=== PATIENT | female | born 1960 | race Caucasian/White ===

== ENCOUNTER 2016-08-27 11:16 | Emergency (ER) | payer OTHER ==
[~2016-08-27] VITALS: Ht 165.1 cm; Wt 99.8 kg
--- NOTE | ~2016-08-27 | EKG ---
[place] [address] [address] [facility] [place] [address] ELECTROCARDIOGRAM REPORT Name: DARRICK PATTON Room #: DEP ASIM Núñez#: [id number] Admission: 08/27/16 Attend Phys: Discharge: 08/27/16 Date of : 58 Report #: [id number] THIS REPORT FOR: //name// [facility] ED Test Date: 2016-08-27 Test Time: 11:20:14 Pat Name: DARRICK PATTON Department: Room: Gender: F Aerial Erector: [facility] : 1960 Requested By: Julio Rios Order Number: [id number] MD: Titi Valverde Measurements Intervals [place] Rate: 72 P: 43 FL: 132 QRS: 47 QRSD: 91 T: 14 QT: 428 QTc: 469 Interpretive Statements Sinus rhythm No significant abnormality No previous ECG available for comparison Electronically Signed On 08-28-2016 15:55:54 CDT by Titi Valverde [email or web address] <ELECTRONICALLY SIGNED> By: Titi Valverde MD, [facility] 08/28/16 1555 1120 1120 Titi Valverde MD, FAC /EPI
[2016-08-27 12:46] LABS: ABSOLUTE NEUTROPHILS 4.6 thou/uL (1.4-8.2); BASOPHILS 0.8 % (0.0-2.0); EOSINOPHILS 0.6 % (0.0-3.0); HEMATOCRIT 37.3 % (37.0-47.0); HEMOGLOBIN 12.9 gm/dL (12.0-15.0); LYMPHOCYTES 35.8 % (24.0-44.0); MCH 27.6 pg (26.0-34.0); MCHC 34.6 g/dL (28.0-37.0); MCV 79.9 fL (80.0-100.0); MONOCYTES 5.7 % (1.0-8.0); PLATELET COUNT 231 thou/uL (150-400); POLYS 57.1 % (36.0-66.0); RBC 4.67 mil/uL (4.20-5.00); WBC 8.1 thou/uL (4.0-11.0)
[2016-08-27 12:48] LABS: MANUAL DIFF NO
[2016-08-27 12:52] LABS: ANION GAP 9 mmol/L (7-16); BUN 17 mg/dL (7-18); CALCIUM 8.3 mg/dL (8.5-10.1); CHLORIDE 104 mmol/L (98-107); CO2 27 mmol/L (21-32); CREATININE 0.7 mg/dL (0.6-1.0); GLUCOSE 101 mg/dL (74-106); POTASSIUM 3.5 mmol/L (3.5-5.1); SODIUM 140 mmol/L (136-145)
[2016-08-27 13:03] LABS: ALBUMIN 2.9 g/dL (3.4-5.0); ALKALINE PHOSPHATASE 146 U/L (46-116); DIRECT BILIRUBIN < 0.1 mg/dL (<0.1-0.3); NT-PRO BRAIN NAT PEPTIDE 426 pg/mL (<300); SGOT 20 U/L (15-37); SGPT 13 U/L (30-65); TOTAL BILIRUBIN 0.4 mg/dL (<0.1-1.0); TOTAL PROTEIN 6.7 g/dL (6.4-8.2); TROPONIN-I < 0.04 ng/mL (<0.04-0.07)
[2016-08-27 14:42] VITALS: BP 111/50
[2016-08-27] MEDS ORDERED: DOXYCYCLINE 10100 MG PO (15:03)
== END 2016-08-27 15:40 | disposition home or self-care (01) ==
LOC: ER 11:16
PROVIDERS: Physician Assistant
DX: J18.9 Pneumonia, unspecified organism (principal); F41.9 Anxiety disorder, unspecified; F32.9 Major depressive disorder, single episode, unspecified; M19.90 Unspecified osteoarthritis, unspecified site; Z90.49 Acquired absence of other specified parts of digestive tract; Z90.710 Acquired absence of both cervix and uterus; Z88.2 Allergy status to sulfonamides; Z88.6 Allergy status to analgesic agent; Z88.8 Allergy status to other drugs, medicaments and biological substances

== ENCOUNTER 2017-01-29 10:40 | Emergency (ER) | payer OTHER ==
[~2017-01-29] VITALS: Ht 165.1 cm; Wt 104.3 kg
[~2017-01-29 10:40] MED LIST: ATORVASTATIN CA40 MG PO; BENTYL 10 MG CA10 M1 PO; BUSPIRONE HCL5 MG PO; CLONAZEPAM 1 MG1 M1 PO; DOXYCYCLINE 10100 MG PO; FENTANYL PATCH75 MCG TRANSDERM; LEXAPRO20 MG PO; NEURONTIN 300300 M1 PO; PERCOCET PO; PROTONIX40 M1 PO; QUETIAPINE FUMA50 MG PO; VISTARIL 25 MG25 M1 PO; XARELTO10 MG PO; ZANTAC 150MG T150 MG PO
[2017-01-29] MEDS ORDERED: NORCO 10-325 T1 EACH PO (10:58)
[2017-01-29] MEDS ORDERED: BENTYL 10 MG CA10 MG PO (10:59)
[2017-01-29] MEDS ORDERED: MOBIC15 MG PO (11:59)
[2017-01-29] MEDS ORDERED: PERCOCET 5-3251 EACH PO (11:59)
== END 2017-01-29 13:02 | disposition home or self-care (01) ==
LOC: ER 10:40
DX: M25.559 Pain in unspecified hip (principal); M17.11 Unilateral primary osteoarthritis, right knee; F41.9 Anxiety disorder, unspecified; F32.9 Major depressive disorder, single episode, unspecified; G89.29 Other chronic pain; M19.90 Unspecified osteoarthritis, unspecified site; Z87.891 Personal history of nicotine dependence; Z98.890 Other specified postprocedural states; Z88.1 Allergy status to other antibiotic agents; Z88.8 Allergy status to other drugs, medicaments and biological substances; Z88.2 Allergy status to sulfonamides

== ENCOUNTER 2017-06-13 11:58 | Emergency (ER) | payer OTHER ==
[~2017-06-13] VITALS: Ht 165.1 cm; Wt 99.8 kg
[~2017-06-13 11:58] MED LIST changes: +BENTYL 10 MG CA10 MG PO; +MOBIC15 MG PO; +NORCO 10-325 T1 EACH PO; +PERCOCET 5-3251 EACH PO
== END 2017-06-13 15:06 | disposition home or self-care (01) ==
LOC: ER 11:58
DX: M25.572 Pain in left ankle and joints of left foot (principal); G89.29 Other chronic pain; M54.5 Low back pain; G43.909 Migraine, unspecified, not intractable, without status migrainosus; M19.90 Unspecified osteoarthritis, unspecified site; Z90.49 Acquired absence of other specified parts of digestive tract; Z90.710 Acquired absence of both cervix and uterus; Z87.891 Personal history of nicotine dependence; Z88.1 Allergy status to other antibiotic agents; Z88.8 Allergy status to other drugs, medicaments and biological substances

== ENCOUNTER 2017-07-15 10:08 | Inpatient (IN) | payer OTHER ==
[~2017-07-15] VITALS: Ht 165.1 cm; Wt 117.0 kg
--- NOTE | ~2017-07-15 | 2DMMODE ---
[facility] [address] [place] [address] 2 D/M-MODE ECHOCARDIOGRAM Name: DARRICK PATTON Room #: 360-P ADM IN M.R.#: [id number] Admission: 07/15/17 Attend Phys: Eliu Trevino Discharge: Date of : 58 Date of Service: 07/17/17 1543 Report #: [id number] THIS REPORT FOR: //name// APPROVED REPORT Study performed: 07/17/2017 14:48:19 EXAM: Comprehensive 2D, Doppler, and color-flow Echocardiogram Patient Location: Echo lab Room #: 360 Status: routine BSA: 2.20 HR: 73 bpm BP: 118/66 mmHg Other Information Study Quality: Adequate Technically limited study due to body habitus. Indications Chest Pain 2D Dimensions RVDd: 35.79 mm LVEF(%): 55.04 (>50%) IVSd: 10.70 (7-11mm) LVOT Diam: 19.29 (18-24mm) LVDd: 43.03 mm PWd: 9.64 (7-11mm) Ascending Ao: 28.25 (22-36mm) LVDs: 30.83 (25-40mm) Aortic Root: 28.43 mm IVC: 18.00 mm Biswas's LVEF: 55.04 % Volumes Left Atrial Volume (Systole) Single Plane 4CH: 62.60 mL Single Plane 2CH: 43.38 mL LA ESV Index: 25.00 mL/m2 Aortic Valve AoV Peak Wilfredo.: 1.90 m/s AO Peak Gr.: 14.40 mmHg LVOT Max P.70 mmHg LVOT Max V: 1.29 m/s EDINSON Vmax: 1.99 cm2 Mitral Valve E/A Ratio: 0.8 MV Decel. Time: 282.38 ms [facility] [place] [address] 2 D/M-MODE ECHOCARDIOGRAM Name: DARRICK PATTON Room #: 360-[facility] IN M.R.#: [id number] Admission: 07/15/17 Attend Phys: Eliu Trevino Discharge: Date of : 58 Date of Service: 07/17/17 1543 Report #: [id number] MV E Max Wilfredo.: 0.77 m/s MV A Wilfredo.: 0.95 m/s MV PHT: 81.89 ms IVRT: 89.97 ms Pulmonary Valve PV Peak Wilfredo.: 1.35 m/s PV Peak Gr.: 7.25 mmHg Pulmonary Vein P Vein S: 0.70 m/s P Vein A: 0.22 m/s P Vein D: 0.54 m/s P Vein A Dur.: 96.9 msec P Vein S/D Ratio: 1.30 Tricuspid Valve TR Peak Wilfredo.: 2.96 m/s RAP Estimate: 5.00 mmHg TR Peak Gr.: 35.14 mmHg PA Pressure: 40.00 mmHg Left Ventricle The left ventricle is normal size. There is normal left ventricular wall thickness. The left ventricular systolic function is normal. The left ventricular ejection fraction is within the normal range. LVEF is 55%. Mild diastolic dysfunction is present (impaired relaxation pattern). Right Ventricle The right ventricle is normal size. The right ventricular systolic function is normal. Atria The left atrium size is normal. The right atrium size is normal. Aortic Valve The aortic valve is normal in structure. No aortic regurgitation is present. There is no aortic valvular stenosis. Mitral Valve The mitral valve is normal in structure. Trace mitral regurgitation. No evidence of mitral valve stenosis. Tricuspid Valve The tricuspid valve is normal in structure. Mild tricuspid regurgitation. PAP is estimated at 40 mmHg. Pulmonic Valve [address] [address] 2 D/M-MODE ECHOCARDIOGRAM Name: DARRICK PATTON Room #: 360-P [facility] IN ..#: [id number] Admission: 07/15/17 Attend Phys: Eliu Trevino Discharge: Date of : 58 Date of Service: 07/17/17 1543 Report #: [id number] Pulmonic valve is not well visualized. Great Vessels The aortic root is normal in size. IVC is normal in size and collapses >50% with inspiration. Pericardium There is no pericardial effusion. <Conclusion> The left ventricle is normal size. There is normal left ventricular wall thickness. The left ventricular systolic function is normal. Mild diastolic dysfunction is present (impaired relaxation pattern). The right ventricle is normal size. The left atrium size is normal. There is no aortic valvular stenosis. Trace mitral regurgitation. Mild tricuspid regurgitation. PAP is estimated at 40 mmHg. <ELECTRONICALLY SIGNED> By: Fabian Batres MD 07/17/17 1543 1543 1543 Fabian Batres MD /INF
--- NOTE | ~2017-07-15 | EKG ---
[place] [address] [facility] [place] [address] ELECTROCARDIOGRAM REPORT Name: DARRICK PATTON Room #: 360-P ADM IN M.R.#: [id number] Admission: 07/15/17 Attend Phys: Eliu Mccollum Discharge: Date of : 58 Report #: [id number] THIS REPORT FOR: //name// [facility] ED Test Date: 2017-07-15 Test Time: 10:31:08 Pat Name: DARRICK PATTON Department: Room: Gender: F Environmental Services Tech: edgar : 1960 Requested By: Jeanne Gaines Order Number: [id number] MD: Titi Valverde Measurements Intervals [place] Rate: 79 P: 31 VA: 140 QRS: 32 QRSD: 93 T: 17 QT: 393 QTc: 451 Interpretive Statements Sinus rhythm No significant abnormality Compared to ECG 08/27/2016 11:20:14 No significant changes Electronically Signed On 07-16-2017 16:35:27 CDT by Titi Valverde [email or web address] <ELECTRONICALLY SIGNED> By: Titi Valverde MD, [facility] 07/16/17 1635 1031 1031 Titi Valverde MD, FACC /EPI
--- NOTE | ~2017-07-15 | EKG ---
[address] [facility] [place] [address] ELECTROCARDIOGRAM REPORT Name: DARRICK PATTON Room #: 360-P ADM IN M.R.#: [id number] Admission: 07/15/17 Attend Phys: Eliu Mccollum Discharge: Date of : 58 Report #: [id number] THIS REPORT FOR: //name// [facility] ED Test Date: 2017-07-15 Test Time: 13:47:32 Pat Name: DARRICK PATTON Department: Room: 360 P Gender: F Gis Mapping Technician: : 1960 Requested By: Eliu Mccollum Order Number: [id number] MD: Titi Valverde Measurements Intervals [place] Rate: 72 P: 28 RI: 150 QRS: 29 QRSD: 91 T: 15 QT: 411 QTc: 450 Interpretive Statements Sinus rhythm No significant abnormality Compared to ECG 08/27/2016 11:20:14 No significant changes Electronically Signed On 07-16-2017 16:36:29 CDT by Titi Valverde [email or web address] <ELECTRONICALLY SIGNED> By: Titi Valverde MD, [facility] 07/16/17 1636 1347 46 Titi Valverde MD, FACC /EPI
[2017-07-15 10:09] VITALS: BP 138/77
[2017-07-15 11:15] LABS: ABSOLUTE NEUTROPHILS 3.9 thou/uL (1.4-8.2); BASOPHILS 0.7 % (0.0-2.0); EOSINOPHILS 0.9 % (0.0-3.0); HEMATOCRIT 36.3 % (37.0-47.0); HEMOGLOBIN 12.6 gm/dL (12.0-15.0); LYMPHOCYTES 27.2 % (24.0-44.0); MCHC 34.8 g/dL (28.0-37.0); MCV 83.1 fL (80.0-100.0); MONOCYTES 6.6 % (1.0-8.0); PLATELET COUNT 205 thou/uL (150-400); POLYS 64.6 % (36.0-66.0); RBC 4.37 mil/uL (4.20-5.00); RDW 13.7 % (10.5-14.5); WBC 6.1 thou/uL (4.0-11.0)
[2017-07-15 11:24] LABS: ANION GAP 3 mmol/L (7-16); BUN 8 mg/dL (7-18); CHLORIDE 104 mmol/L (98-107); CO2 30 mmol/L (21-32); CREATININE 0.7 mg/dL (0.6-1.0); GLUCOSE 122 mg/dL (74-106); POTASSIUM 3.6 mmol/L (3.5-5.1); SODIUM 137 mmol/L (136-145)
[2017-07-15 11:32] LABS: TROPONIN-I < 0.04 ng/mL (<0.06)
[2017-07-15 13:50] LABS: CHOLESTEROL 173 mg/dL (<200); HDL CHOLESTEROL 36 mg/dL (>40); LDL CHOLESTEROL 95 mg/dL (<100); SERUM ASSESSMENT Clear; TC:HDL 4.8 Ratio (Not establshd); TRIGLYCERIDE 210 mg/dL (<150); VLDL 42 mg/dL (<40)
[2017-07-15 14:02] LABS: URINE BILIRUBIN NEGATIVE (Negative); URINE BLOOD NEGATIVE (Negative); URINE CLARITY CLEAR; URINE COLOR YELLOW; URINE GLUCOSE-RANDOM* NEGATIVE (Negative); URINE KETONES NEGATIVE (Negative); URINE LEUKOCYTES NEGATIVE (Negative); URINE NITRITE NEGATIVE (Negative); URINE PROTEIN (DIPSTICK) NEGATIVE (Negative); URINE SPECIFIC GRAVITY <= 1.005 (1.005-1.035); URINE UROBILINOGEN 0.2 E.U./dl (0.2-1.0)
[2017-07-15] MEDS ORDERED: CELEXA20 MG PO (14:15)
[2017-07-15 14:16] LABS: TSH 2.99 uIU/mL (0.358-3.740)
[2017-07-15 14:34] VITALS: BP 138/77
[2017-07-15 14:50] VITALS: BP 110/54
[2017-07-15 15:04] VITALS: BP 123/66
[2017-07-15 19:44] VITALS: BP 103/64
[2017-07-16 04:00] VITALS: BP 93/47
[2017-07-16 07:29] VITALS: BP 94/49
[2017-07-16 11:25] VITALS: BP 112/63
[2017-07-16 15:05] VITALS: BP 128/68
[2017-07-16 19:34] VITALS: BP 116/52
[2017-07-17 03:32] VITALS: BP 120/55
[2017-07-17 08:30] VITALS: BP 118/66
[2017-07-17] MEDS ORDERED: NEURONTIN 300300 M1 PO (16:10)
[2017-07-17] MEDS ORDERED: BUSPIRONE HCL5 MG PO (16:10)
[2017-07-17 16:19] VITALS: BP 118/66
[2017-07-17 16:25] VITALS: BP 116/57
== END 2017-07-17 18:13 | disposition home or self-care (01) | DRG 880 ==
LOC: ER 10:08 → EROBS 13:20 → 3W 13:20 → ENTRNSPT 07-17 17:05 → 3W 07-17 18:13
PROVIDERS: Emergency Medicine; Hospitalist
DX: F41.0 Panic disorder [episodic paroxysmal anxiety] (principal); G43.909 Migraine, unspecified, not intractable, without status migrainosus; F32.9 Major depressive disorder, single episode, unspecified; G62.9 Polyneuropathy, unspecified; M54.12 Radiculopathy, cervical region; F41.1 Generalized anxiety disorder; G89.29 Other chronic pain; M54.5 Low back pain; M19.90 Unspecified osteoarthritis, unspecified site; Z90.49 Acquired absence of other specified parts of digestive tract; Z90.710 Acquired absence of both cervix and uterus; Z88.2 Allergy status to sulfonamides; Z88.8 Allergy status to other drugs, medicaments and biological substances; Z87.891 Personal history of nicotine dependence; Z86.718 Personal history of other venous thrombosis and embolism; Z86.711 Personal history of pulmonary embolism
CPT/HCPCS: 10879

== ENCOUNTER 2018-03-01 18:01 | Emergency (ER) | payer OTHER ==
[~2018-03-01] VITALS: Ht 165.1 cm; Wt 95.3 kg
[~2018-03-01 18:01] MED LIST changes: +CELEXA20 MG PO
[2018-03-01] MEDS ORDERED: NEURONTIN600 MG PO (18:09)
[2018-03-01] MEDS ORDERED: IRON325 PO (18:11)
[2018-03-01] MEDS ORDERED: MAGOX 400400 MG PO (18:11)
[2018-03-01] MEDS ORDERED: UNICOMPLEX M TA1 TA1 PO (18:11)
[2018-03-01 20:30] VITALS: BP 138/69
[2018-03-01] MEDS ORDERED: PREDNISONE 20 M20 MG PO (20:35)
== END 2018-03-01 20:49 | disposition home or self-care (01) ==
LOC: ER 18:01
DX: S39.012A Strain of muscle, fascia and tendon of lower back, initial encounter (principal); S63.591A Other specified sprain of right wrist, initial encounter; S60.221A Contusion of right hand, initial encounter; F41.9 Anxiety disorder, unspecified; G43.909 Migraine, unspecified, not intractable, without status migrainosus; F32.9 Major depressive disorder, single episode, unspecified; G89.29 Other chronic pain; M19.90 Unspecified osteoarthritis, unspecified site; Z90.49 Acquired absence of other specified parts of digestive tract; Z90.710 Acquired absence of both cervix and uterus; Z87.891 Personal history of nicotine dependence; Z88.6 Allergy status to analgesic agent; Z88.8 Allergy status to other drugs, medicaments and biological substances; Z88.2 Allergy status to sulfonamides; Z86.718 Personal history of other venous thrombosis and embolism; W22.8XXA Striking against or struck by other objects, initial encounter; Y92.89 Other specified places as the place of occurrence of the external cause; Y93.89 Activity, other specified; Y99.8 Other external cause status

== ENCOUNTER 2018-06-18 12:28 | Inpatient (IN) | payer OTHER ==
[~2018-06-18] VITALS: Ht 165.1 cm; Wt 99.8 kg
[2018-06-18 12:28] VITALS: BP 165/81
[~2018-06-18 12:28] MED LIST changes: +IRON325 PO; +MAGOX 400400 MG PO; +NEURONTIN600 MG PO; +PREDNISONE 20 M20 MG PO; +UNICOMPLEX M TA1 TA1 PO
[2018-06-18] MEDS ORDERED: HYDROXYZINE HCL25 M1 PO (14:38)
--- NOTE | 2018-06-18 14:49 | EKG ---
[place] [address] [place] [address] ELECTROCARDIOGRAM REPORT Name: POOJADARRICK Room #: REG ASIM Núñez#: [id number] ������������������ Admission: 06/18/18 ������������������ Attend Phys: Discharge: ������������������ Date of : 58 Report #: [id number] ����������������������������������������������������������������� [id number] THIS REPORT FOR: //name// [facility] ED Test Date: 2018-06-18 Test Time: 12:35:25 Pat Name: DARRICK PATTON Department: Room: Gender: F Care Consultant: MIKE : 1960 Requested By: Alona Muñoz Order Number: [id number] MD: Jesús Don Measurements Intervals [place] Rate: 76 P: 30 UT: 135 QRS: 39 QRSD: 88 T: 10 QT: 387 QTc: 436 Interpretive Statements Sinus rhythm Baseline wander in lead(s) V3 Compared to ECG 07/15/2017 13:47:32 No significant changes Electronically Signed On 06-18-2018 14:48:59 CDT by Jesús Don [email or web address] ��������������������������������������������� <ELECTRONICALLY SIGNED> ���������������������������������������� By: Jesús Don MD ��������������������������������������������� 06/18/18 1448 1235 1235 Jesús Don MD /VIGNESH
[2018-06-18 15:00] LABS: ABSOLUTE NEUTROPHILS 5.5 thou/uL (1.4-8.2); BASOPHILS 1.1 % (0.0-2.0); EOSINOPHILS 0.4 % (0.0-3.0); HEMATOCRIT 37.6 % (37.0-47.0); HEMOGLOBIN 13.2 gm/dL (12.0-15.0); LYMPHOCYTES 22.6 % (24.0-44.0); MCV 85.7 fL (80.0-100.0); PLATELET COUNT 273 thou/uL (150-400); POLYS 71.9 % (36.0-66.0); RBC 4.39 mil/uL (4.20-5.00); RDW 12.7 % (10.5-14.5); WBC 7.6 thou/uL (4.0-11.0)
[2018-06-18 15:38] LABS: ANION GAP 8 mmol/L (7-16); BUN 11 mg/dL (7-18); CALCIUM 9.1 mg/dL (8.5-10.1); CHLORIDE 104 mmol/L (98-107); CO2 30 mmol/L (21-32); CREATININE 0.7 mg/dL (0.6-1.0); GLUCOSE 106 mg/dL (74-106); SODIUM 142 mmol/L (136-145)
[2018-06-18 15:41] LABS: TROPONIN-I <0.06 ng/mL (<0.06)
[2018-06-18 17:27] VITALS: BP 126/61
[2018-06-18 17:33] VITALS: BP 135/76
[2018-06-18 17:33] LABS: CHOLESTEROL 174 mg/dL (<200); HDL CHOLESTEROL 37 mg/dL (>40); LDL CHOLESTEROL 120 mg/dL (<100); TC:HDL 4.7 Ratio (Not establshd); TRIGLYCERIDE 86 mg/dL (<150); VLDL 17 mg/dL (<40)
[2018-06-18 18:25] VITALS: BP 135/75
[2018-06-18 19:21] VITALS: BP 101/52
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
[2018-06-19 00:06] VITALS: BP 107/59
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
[2018-06-19 03:51] VITALS: BP 146/82
[2018-06-19 04:10] LABS: GLYCOHEMOGLOBIN (HGB A1C) 5.3 % (4.8-5.6)
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
[2018-06-19 06:21] LABS: ANION GAP 9 mmol/L (7-16); BUN 13 mg/dL (7-18); CALCIUM 9.1 mg/dL (8.5-10.1); CHLORIDE 103 mmol/L (98-107); CO2 28 mmol/L (21-32); CREATININE 0.7 mg/dL (0.6-1.0); GLUCOSE 111 mg/dL (74-106); POTASSIUM 3.6 mmol/L (3.5-5.1); SODIUM 140 mmol/L (136-145); TROPONIN-I <0.06 ng/mL (<0.06)
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
[2018-06-19 08:08] VITALS: BP 117/66
[2018-06-19] MEDS ORDERED: LIPITOR10 MG PO (08:32)
[2018-06-19] MEDS ORDERED: VISTARIL 25 MG25 M1 PO (08:37)
[2018-06-19] MEDS ORDERED: XARELTO20 MG PO (08:38)
[2018-06-19] MEDS ORDERED: ESTRADIOL 1 MG T1 M1 PO (08:39)
[2018-06-19] MEDS ORDERED: CELEXA20 MG PO (08:39)
[2018-06-19] MEDS ORDERED: BENTYL 10 MG CA10 M1 PO (08:40)
--- NOTE | 2018-06-19 10:13 | 2DMMODE ---
[facility] [address] [place] [address] 2 D/M-MODE ECHOCARDIOGRAM Name: DARRICK PATTON Room #: 350-P ADM IN M.R.#: [id number] ������������� Admission: 06/18/18 ������������� Attend Phys: Julia Quintana MD Discharge: ��� ������������� ��� Date of : 58 Date of Service: 06/19/18 1013 �� Report #: [id number] �������� ��������������������������������������������[id number] THIS REPORT FOR: //name// APPROVED REPORT Study performed: 06/19/2018 09:33:01 EXAM: Comprehensive 2D, Doppler, and color-flow Echocardiogram Patient Location: Out-Patient Room #: 350 Status: routine BSA: 2.06 HR: 71 bpm BP: 117/66 mmHg Rhythm: NSR Other Information Study Quality: Adequate Indications Chest Pain 2D Dimensions RVDd: 29.94 mm IVSd: 12.00 (7-11mm) LVOT Diam: 19.00 (18-24mm) LVDd: 46.33 mm PWd: 11.00 (7-11mm) Ascending Ao: 32.02 (22-36mm) LVDs: 28.33 (25-40mm) Aortic Root: 28.33 mm Volumes Left Atrial Volume (Systole) Single Plane 4CH: 41.70 mL Single Plane 2CH: 40.63 mL LA ESV Index: 21.00 mL/m2 Aortic Valve AoV Peak Wilfredo.: 1.60 m/s AO Peak Gr.: 10.20 mmHg LVOT Max P.35 mmHg LVOT Max V: 1.16 m/s EDINSON Vmax: 2.05 cm2 Mitral Valve E/A Ratio: 0.8 MV Decel. Time: 269.91 ms MV E Max Wilfredo.: 0.67 m/s [facility] [address] [place] [address] 2 D/M-MODE ECHOCARDIOGRAM Name: DARRICK PATTON Room #: [address] [place] [address] [place] ..#: [id number] ������������� Admission: 06/18/18 ������������� Attend Phys: Julia Quintana MD Discharge: ��� ������������� ��� Date of : 58 Date of Service: 06/19/18 1013 �� Report #: [id number] �������� ��������������������������������������������[id number] MV A Wilfredo.: 0.83 m/s MV PHT: 78.27 ms IVRT: 79.58 ms Pulmonary Valve PV Peak Wilfredo.: 1.45 m/s PV Peak Gr.: 8.43 mmHg Pulmonary Vein P Vein S: 0.69 m/s P Vein A: 0.27 m/s P Vein D: 0.60 m/s P Vein A Dur.: 106.1 msec P Vein S/D Ratio: 1.15 Tricuspid Valve TR Peak Wilfredo.: 2.43 m/s RAP Estimate: 5.00 mmHg TR Peak Gr.: 23.71 mmHg PA Pressure: 29.00 mmHg Left Ventricle The left ventricle is normal size. There is normal LV segmental wall motion. Mild basal septal hypertrophy is present. Left ventricular systolic function is normal. LVEF is 60%. Mild diastolic dysfunction is present (impaired relaxation pattern). Right Ventricle The right ventricle is normal size. The right ventricular systolic function is normal. Atria The left atrium size is normal. The right atrium size is normal. Aortic Valve The aortic valve is normal in structure. No aortic regurgitation is present. There is no aortic valvular stenosis. Mitral Valve The mitral valve is normal in structure. Trace mitral regurgitation. Tricuspid Valve The tricuspid valve is normal in structure. Trace tricuspid regurgitation. Estimated PAP is 30mmHg. Pulmonic Valve The pulmonary valve is normal in structure. There is no pulmonic valvular regurgitation. [facility] [address] [place] [address] 2 D/M-MODE ECHOCARDIOGRAM Name: DARRICK PATTON Room #: [facility] IN .R.#: [id number] ������������� Admission: 06/18/18 ������������� Attend Phys: Julia Quintana MD Discharge: ��� ������������� ��� Date of : 58 Date of Service: 06/19/18 1013 �� Report #: [id number] �������� ��������������������������������������������[id number] Great Vessels The aortic root is normal in size. The ascending aorta is normal in size. IVC is normal in size and collapses >50% with inspiration. Pericardium There is no pericardial effusion. <Conclusion> Left ventricular systolic function is normal. There is normal LV segmental wall motion. LVEF is 60%. Mild diastolic dysfunction The aortic valve is normal in structure. No aortic regurgitation or stenosis The mitral valve is normal in structure. Trace mitral regurgitation. Trace tricuspid regurgitation. Estimated pulmonary artery pressure of 30mmHg. There is no pericardial effusion. ��������������������������������������������� <ELECTRONICALLY SIGNED> ���������������������������������������� By: Titi Valverde MD, [facility] ��������������������������������������������� 06/19/18 1013 1013 1013 Titi Valverde MD, FACC /INF
[2018-06-19 10:18] LABS: URINE BILIRUBIN NEGATIVE (Negative); URINE BLOOD NEGATIVE (Negative); URINE CLARITY CLEAR; URINE GLUCOSE-RANDOM* NEGATIVE (Negative); URINE KETONES TRACE (Negative); URINE LEUKOCYTES-REFLEX NEGATIVE (Negative); URINE NITRITE-REFLEX NEGATIVE (Negative); URINE PROTEIN (DIPSTICK) NEGATIVE (Negative)
[2018-06-19 10:21] LABS: URINE COLOR AMBER
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
[2018-06-19 19:22] VITALS: BP 91/46
[2018-06-20 03:42] VITALS: BP 108/60
--- NOTE | 2018-06-20 05:03 | NUR ---
patient is alert and oriented. patient would only take triptins in inhaler form which we dont carry. patient got pain medication. patient slept well. patient is up ad clyde. patient is on room air. patient has an order for no iv. patient is pending discharge today. patients lbm was the 1st. is nsr on tele. troponins, ekg and echo were negative. patient has not expressed any suicidal ideation. one to one was dc before this shift. patient is resting comfortably in bed wcm.
[2018-06-20 07:30] VITALS: BP 92/51
[2018-06-20 13:09] VITALS: BP 92/51
--- NOTE | 2018-06-20 13:13 | NUR ---
ORDERS FOR EVAL AND TREAT RECEIVED. Pt HAS BEEN UP AD JOSIAH IN ROOM WITHOUT AD. CONFIRMED THIS FROM CHART WITH RN AND WITH Pt. Pt LIVES IN HOME WITH SON AND SON'S GIRLFRIEND. Pt LIVES ON FIRST FLOOR AND SON/GF LIVE ON 2ND FLOOR. Pt REPORTS 2 STEPS TO ENTER AND 13 STEPS UP TO SECOND LEVEL IN ROOM TO ACCESS THE BATHROOM FOR SHOWERING. Pt IS AMBULATORY WITHOUT AN AD AND INDEP WITH ADLs. Pt STATED SHE HAS HAD NO ISSUES WITH BALANCE OR MOBILITY SINCE ADMISSION AND DECLINED NEEDING PT SERVICES AT THIS TIME. ACUTE PT TO SIGN OFF.
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
[2018-06-20 15:17] VITALS: BP 92/51
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
== END 2018-06-20 15:54 | disposition home health service (06) | DRG 313 ==
LOC: ER 12:28 → EROBS 16:52 → 3W 16:52 → ENTRNSPT 06-20 15:34 → EDTRNSPTSTS 06-20 15:36 → 3W 06-20 15:54
PROVIDERS: Emergency Medicine; ADMIT Internal Medicine
DX: R07.89 Other chest pain (principal); D68.59 Other primary thrombophilia; R45.851 Suicidal ideations; F41.9 Anxiety disorder, unspecified; G43.909 Migraine, unspecified, not intractable, without status migrainosus; F32.9 Major depressive disorder, single episode, unspecified; M19.90 Unspecified osteoarthritis, unspecified site; M54.5 Low back pain; G62.9 Polyneuropathy, unspecified; E78.5 Hyperlipidemia, unspecified; I10 Essential (primary) hypertension; G89.4 Chronic pain syndrome; E66.9 Obesity, unspecified; R45.850 Homicidal ideations; Z86.718 Personal history of other venous thrombosis and embolism; Z68.36 Body mass index [BMI] 36.0-36.9, adult; Z90.49 Acquired absence of other specified parts of digestive tract; Z90.710 Acquired absence of both cervix and uterus; Z87.891 Personal history of nicotine dependence; Z79.01 Long term (current) use of anticoagulants; Z79.899 Other long term (current) drug therapy; Z88.2 Allergy status to sulfonamides; Z88.8 Allergy status to other drugs, medicaments and biological substances; Z82.49 Family history of ischemic heart disease and other diseases of the circulatory system
CPT/HCPCS: 10879

== ENCOUNTER 2020-08-24 12:34 | Emergency (ER) | payer OTHER ==
[~2020-08-24] VITALS: Ht 165.1 cm; Wt 95.3 kg
[~2020-08-24 12:34] MED LIST changes: +ESTRADIOL 1 MG T1 M1 PO; +HYDROXYZINE HCL25 M1 PO; +LIPITOR10 MG PO; +XARELTO20 MG PO
[2020-08-24] MEDS ORDERED: PROTONIX40 M2 PO (14:10)
[2020-08-24 16:15] LABS: URINE BILIRUBIN NEGATIVE (Negative); URINE BLOOD NEGATIVE (Negative); URINE CLARITY CLEAR; URINE COLOR YELLOW; URINE GLUCOSE-RANDOM* NEGATIVE (Negative); URINE KETONES NEGATIVE (Negative); URINE LEUKOCYTES-REFLEX NEGATIVE (Negative); URINE NITRITE-REFLEX NEGATIVE (Negative); URINE PROTEIN (DIPSTICK) NEGATIVE (Negative); URINE SPECIFIC GRAVITY >= 1.030 (1.005-1.035); URINE UROBILINOGEN 0.2 E.U./dl (0.2-1.0)
[2020-08-24 17:40] LABS: ABSOLUTE NEUTROPHILS 5.5 thou/uL (1.4-8.2); EOSINOPHILS 1.5 % (0.0-3.0); HEMATOCRIT 38.8 % (37.0-47.0); HEMOGLOBIN 13.2 gm/dL (12.0-15.0); LYMPHOCYTES 19.1 % (24.0-44.0); MCH 30.1 pg (26.0-34.0); MCV 88.7 fL (80.0-100.0); MONOCYTES 5.6 % (1.0-8.0); PLATELET COUNT 216 thou/uL (150-400); POLYS 72.8 % (36.0-66.0); RBC 4.38 mil/uL (4.20-5.00); RDW 13.6 % (10.5-14.5); WBC 7.6 thou/uL (4.0-11.0)
[2020-08-24 17:48] LABS: CALCIUM 8.6 mg/dL (8.5-10.1); CREATININE 0.7 mg/dL (0.6-1.0); POTASSIUM 3.9 mmol/L (3.5-5.1)
[2020-08-24 17:54] LABS: ALBUMIN 3.2 g/dL (3.4-5.0); DIRECT BILIRUBIN 0.1 mg/dL (<0.1-0.2); TOTAL BILIRUBIN 0.5 mg/dL (0.2-1.0); TOTAL PROTEIN 7.3 g/dL (6.4-8.2)
[2020-08-24 19:47] VITALS: BP 131/70
== END 2020-08-24 19:49 | disposition home or self-care (01) ==
LOC: ER 12:34
PROVIDERS: Emergency Medicine
DX: R10.31 Right lower quadrant pain (principal); G43.909 Migraine, unspecified, not intractable, without status migrainosus; G89.29 Other chronic pain; M19.90 Unspecified osteoarthritis, unspecified site; Z87.891 Personal history of nicotine dependence; Z88.2 Allergy status to sulfonamides; Z88.6 Allergy status to analgesic agent; Z88.8 Allergy status to other drugs, medicaments and biological substances; Z79.899 Other long term (current) drug therapy; Z90.710 Acquired absence of both cervix and uterus; Z98.51 Tubal ligation status